=== PATIENT | male | born 1995 | race Caucasian/White ===

== ENCOUNTER 2017-07-16 21:01 | Emergency (ER) | payer SELFPAY ==
[~2017-07-16] VITALS: Ht 182.9 cm; Wt 70.1 kg
[2017-07-16 21:05] VITALS: BP 136/76; PULSE 80; RESP 18; TEMP 98.7; O2SAT 97
--- NOTE | 2017-07-16 21:33 | PD ---
HPI Chief Complaint: ENT Complaint Time Seen by Provider: 21:20 Travel History International Travel<30 days: No Contact w/Intl Traveler<30days: [place] Country Traveled to: [facility] Traveled to known affect area: No History of Present Illness HPI Patient presents to the emergency department complaining of throat and tonsils swollen. He has been diagnosed with strep throat twice May 13 and last month. May 13 he was given amoxicillin and prednisone, while last month he was given a shot for pills. No swab was done either time. Denies fever, chills , rash, neck pain, ear pain, cough, shortness of breath. Does report nausea and vomiting and headache today. No diarrhea dysuria, but he does report left chest tightness that started yesterday: Intermittent, moves to his abdominal area. PFSH Past Medical History Medical History: Denies Significant Hx Tetanus Vaccination: Unknown Influenza Vaccination: No Past Surgical History Surgical History: No Previous Surgery Social History Alcohol Use: Yes (OCCASIONAL) Tobacco Use: No Substance Use: No Allergies-Medications (Allergen,Severity, Reaction): Coded Allergies: No Known Allergies (Unverified , 07/16/17) Reported Meds & Prescriptions Reported Meds & Active Scripts Active Clindamycin (Clindamycin HCl) 300 Mg Cap 300 Mg PO TID 10 Days Review of Systems Except as stated in HPI: all other systems reviewed are Neg Physical Exam Narrative GENERAL: No acute distress. Patient is laughing with the person that is with him in the ER. SKIN: Focused skin assessment warm/dry. HEAD: Atraumatic. Normocephalic. EYES: Pupils equal and round. No scleral icterus. No injection or drainage. ENT: No nasal bleeding or discharge. Mucous membranes pink and moist. Enlarged tonsils with exudate bilaterally and erythematous oropharynx, no MACHINE [employer]POSIT[employer]. NECK: Trachea midline. No JVD. CARDIOVASCULAR: Regular rate and rhythm. No murmur appreciated. RESPIRATORY: No accessory muscle use. Clear to auscultation. Breath sounds equal bilaterally. GASTROINTESTINAL: Abdomen soft, non-tender, nondistended. Hepatic and splenic margins not palpable. MUSCULOSKELETAL: No obvious deformities. No clubbing. No cyanosis. No edema. NEUROLOGICAL: Awake and alert. No obvious cranial nerve deficits. Motor grossly within normal limits. Normal speech. PSYCHIATRIC: Appropriate mood and affect; insight and judgment normal. Data Data Last Documented VS Vital Signs Date Time Temp Pulse Resp B/P (MAP) Pulse Ox O2 Delivery O2 Flow Rate FiO2 07/16/17 22:07 66 16 131/71 (91) 97 Room Air 07/16/17 21:05 98.7 Orders Orders Electrocardiogram (07/16/17 21:28) Complete Blood Count With Diff (07/16/17 21:28) Comprehensive Metabolic Panel (07/16/17 21:28) Creatine Kinase (Cpk) (07/16/17 21:28) Ckmb (Isoenzyme) Profile (07/16/17 21:28) Troponin I (07/16/17 21:28) Prothrombin Time / Inr (Pt) (07/16/17 21:28) Act Partial Throm Time (Ptt) (07/16/17 21:28) Group A Rapid Strep Screen (07/16/17 21:28) Chest, Pa & Lat (07/16/17 21:28) Strep Culture (Group A) (07/16/17 21:48) Dexamethasone Inj (Decadron Inj) (07/16/17 23:15) Labs Laboratory Tests Test 07/16/17 21:48 White Blood Count 13.8 TH/MM3 Red Blood Count 5.78 MIL/MM3 Hemoglobin 16.2 GM/DL Hematocrit 49.1 % Mean Corpuscular Volume 85.0 FL Mean Corpuscular Hemoglobin 28.1 PG Mean Corpuscular Hemoglobin Concent 33.0 % Red Cell Distribution Width 12.1 % Platelet Count 200 TH/MM3 Mean Platelet Volume 10.9 FL Neutrophils (%) (Auto) 73.3 % Lymphocytes (%) (Auto) 15.8 % Monocytes (%) (Auto) 5.8 % Eosinophils (%) (Auto) 1.0 % Basophils (%) (Auto) 4.1 % Neutrophils # (Auto) 10.1 TH/MM3 Lymphocytes # (Auto) 2.2 TH/MM3 Monocytes # (Auto) 0.8 TH/MM3 Eosinophils # (Auto) 0.1 TH/MM3 Basophils # (Auto) 0.6 TH/MM3 CBC Comment AUTO DIFF Differential Comment AUTO DIFF CONFIRMED Prothrombin Time 10.1 SEC Prothromb Time International Ratio 1.0 RATIO Activated Partial Thromboplast Time 26.6 SEC Blood Urea Nitrogen 7 MG/DL Creatinine 0.81 MG/DL Random Glucose 90 MG/DL Total Protein 8.3 GM/DL Albumin 4.5 GM/DL Calcium Level 9.5 MG/DL Alkaline Phosphatase 98 U/L Aspartate Amino Transf (AST/SGOT) 18 U/L Alanine Aminotransferase (ALT/SGPT) 31 U/L Total Bilirubin 0.4 MG/DL Sodium Level 141 MEQ/L Potassium Level 3.7 MEQ/L Chloride Level 104 MEQ/L Carbon Dioxide Level 27.1 MEQ/L Anion Gap 10 MEQ/L Estimat Glomerular Filtration Rate 118 ML/MIN Total Creatine Kinase 88 U/L Troponin I LESS THAN 0.02 NG/ML MDM Medical Decision Making Medical Screen Exam Complete: Yes Emergency Medical Condition: Yes Interpretation(s) ECG: Randy rhythm, rate 82, normal intervals, QTC 374, LVH, T-wave inversion in lead III; Labs: Elevated WBC count, coags/ chemistry/ and enzymes negative; rapid strep negative Last Impressions Chest X-Ray 07/16/172127 Signed Impressions: CONCLUSION: No acute cardiopulmonary disease. Differential Diagnosis Musculoskeletal chest pain, ACS, strep pharyngitis, viral pharyngitis Narrative Course Patient presents to the emergency department complaining of tonsils swollen and throat pain. Also complained of left-sided chest pain that began yesterday. His PERC criteria score is 0. Will check flu swab, EKG, chest x-ray, and labs. 2302: Patient states he has a history of anxiety and gets chest pain with anxiety. Advised of desire to get repeat 3 hour EKG and cardiac labs, patient states that he does not want. Patient given 6 mg IV Decadron and will be discharged with clindamycin 300 mg p.o. 3 times daily 10 days as patient has recurrence taking amoxicillin and likely Bicillin. Follow-up with [facility] as patient has no insurance. Diagnosis Primary Impression: Pharyngitis Qualified Codes: J02.9 - Acute pharyngitis, unspecified Referrals: [facility] Patient Instructions: General Instructions, Pharyngitis (ED) Additional Instructions: 1. Follow-up with [facility] in 24-48 hours for reevaluation. 2. Meds as directed. 3. Return to the ER for fever, vomiting, shortness of breath, difficulty swallowing or talking, chest pain, shortness of breath, or any new/ worrisome/worsening symptoms. Med/Other Pt SpecificInfo: Prescription(s) given Scripts Clindamycin (Clindamycin) 300 Mg Cap 300 MG PO TID for Infection for 10 Days, CAP 0 Refills Prov: Pau Madera MD 07/16/17 Disposition: 01 DISCHARGE HOME Condition: Stable Pau Madera MD July 16, 2017 21:33
[2017-07-16 22:07] VITALS: BP 131/71; PULSE 66; RESP 16; O2SAT 97
[2017-07-16 22:07] LABS: AUTOMATED NEUTROPHIL # 10.1 TH/MM3 (1.8-7.7); BASOPHIL # 0.6 TH/MM3 (0-0.2); BASOPHIL % 4.1 % (0.0-2.0); CHLORIDE 104 MEQ/L (98-107); EOSINOPHIL # 0.1 TH/MM3 (0-0.4); HEMATOCRIT 49.1 % (39.0-51.0); HEMOGLOBIN 16.2 GM/DL (13.0-17.0); LYMPH % 15.8 % (9.0-44.0); LYMPHOCYTE # 2.2 TH/MM3 (1.0-4.8); MEAN CORPUSCULAR HEMOGLOBIN 28.1 PG (27.0-34.0); MEAN PLATELET VOLUME 10.9 FL (7.0-11.0); MONO % 5.8 % (0.0-8.0); MONOCYTE # 0.8 TH/MM3 (0-0.9); NEUT % 73.3 % (16.0-70.0); PLATELET COUNT 200 TH/MM3 (150-450); RED BLOOD COUNT 5.78 MIL/MM3 (4.50-5.90); RED CELL DISTRIBUTION WIDTH 12.1 % (11.6-17.2); SODIUM (NA) 141 MEQ/L (136-145); WHITE BLOOD COUNT 13.8 TH/MM3 (4.0-11.0)
--- NOTE | 2017-07-16 22:07 | RADRPT ---
EXAM DATE: 07/16/2017 10:04 PM EDT AGE/SEX: 21 years / Male INDICATIONS: Left sided chest pain for 1 month CLINICAL DATA: This is the patient's initial encounter. Patient reports that signs and symptoms have been present for 1 month and indicates a pain score of 4/10. MEDICAL/SURGICAL HISTORY: None. None. COMPARISON: No prior [place] exams available for comparison. FINDINGS: PA and lateral views of the chest demonstrate the lungs to be symmetrically hyperaerated without evid ence of mass, infiltrate or effusion. The cardiomediastinal contours are unremarkable. Osseous struct ures are intact. CONCLUSION: No acute cardiopulmonary disease. Electronically signed by: Jah Morales MD 07/16/2017 10:06 PM EDT
[2017-07-16 22:12] LABS: ALBUMIN 4.5 GM/DL (3.4-5.0); CALCIUM 9.5 MG/DL (8.5-10.1); GLUCOSE,RANDOM 90 MG/DL (74-106)
[2017-07-16 22:13] LABS: BICARBONATE 27.1 MEQ/L (21.0-32.0); BLOOD UREA NITROGEN 7 MG/DL (7-18); PROTHROMBIN TIME - PATIENT 10.1 SEC (9.8-11.6)
[2017-07-16 22:16] LABS: ALT (GPT) 31 U/L (12-78)
[2017-07-16 22:17] LABS: AST (GOT) 18 U/L (15-37); CREATININE 0.81 MG/DL (0.60-1.30); GLOMERULAR FILTRATION RATE 118 ML/MIN (>89)
[2017-07-16 22:18] LABS: TOTAL BILIRUBIN ADULT 0.4 MG/DL (0.2-1.0); TOTAL PROTEIN 8.3 GM/DL (6.4-8.2)
[2017-07-16 22:19] LABS: ALKALINE PHOSPHATASE 98 U/L (45-117)
[2017-07-16 22:21] LABS: TROPONIN I LESS THAN 0.02 NG/ML (0.02-0.05)
[2017-07-16] MEDS ORDERED: DEXAMETHASONE SOD PHOS 4 MG/ML VIAL IV PUSH ONE (23:15)
[2017-07-16] MEDS ORDERED: CLIN300C5 PO ×2 (23:20→23:23)
[2017-07-16 23:26] VITALS: BP 112/67
--- NOTE | 2017-07-17 13:41 | EKG ---
Date Performed: 07/16/2017 Time Performed: 21:32:18 PTAGE: 21 years EKG: Sinus rhythm PROMINENT VOLTAGE, MAY BE NORMAL FOR AGE ABNORMAL ECG NO PREVIOUS TRACING DOCTOR: Enmanuel Tee Interpretating Date/Time 07/17/2017 13:40:14
== END 2017-07-16 23:36 | disposition home or self-care (01) ==
LOC: PHEFT 21:01
DX: J02.9 Acute pharyngitis, unspecified (principal); R11.2 Nausea with vomiting, unspecified; R51 Headache; R07.89 Other chest pain; R94.31 Abnormal electrocardiogram [ECG] [EKG]
CPT/HCPCS: 71046; 80053; 82550; 84484; 85025; 85610; 85730; 87081; 87880; 93005; 96374; 99285; J1100